=== PATIENT | female | born 2000 | race Caucasian/White ===

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

== ENCOUNTER → 2018-07-29 | Outpatient (CLI) | payer OTHER ==
--- NOTE | 2018-07-29 17:40 | US ---
EXAM DESCRIPTION: OB Level 2 /Maternal: Ultrasound. CLINICAL HISTORY: Gestational size and dates correlation. Z33.1. 1 para 0, AB 0. By LMP , EGA today is 18 weeks, 4 days, with TRACY of 12/26/2018.. COMPARISON: Previous OB ultrasound not available.. TECHNIQUE: Trans-pelvic scanning through the urine-filled bladder; aguiar-scale, color Doppler, and M-mode sonography FINDINGS: Single, intrauterine gestation, cephalic position. Amniotic fluid volume subjectively normal NATY : Not measured.. Maternal cervix visualized. Placenta posterior with no evidence of previa or abruptio. heart rate by M-mode sonography 155 beats/min. limb activity observed. structural survey: Situs solitus. The following structures were visualized and grossly normal - urinary bladder, stomach, and bilateral kidneys; cord insertion, 3-vessel cord and 4 extremities; spine, 4-chamber heart; diaphragm, bilateral choroid plexus, lateral ventricles, cerebellum, and cisterna magna. Nose/lips seen profile, but not en face. Ultrasound parameter measurements for estimating gestational age: BPD 46.6 mm 20/1 (weeks/days). Head circumference 163.0 mm 19/0. Abdominal circumference 130.0 mm 18/4. Femur length 29.1 mm 19/0. Ultrasound parameter ratios and cephalic index are within the normal range. Mean estimated gestational age is 19 weeks 1 days, corresponding to TRACY of 12/22/2018. Estimated weight based on these measurements is 259+/- 39 g. 9 ounces. 61st percentile LMP. Bilateral adnexa not well seen; ovaries not seen. IMPRESSION: 1. Single, living, intrauterine gestation in cephalic presentation. Amniotic fluid volume subjectively normal, and maternal cervix visualized.. Placenta posterior with no evidence of previa. Structural survey grossly normal . cardiac ventricular outflow tracts were not well seen. face only seen in profile. 2. Estimated gestational age by today's ultrasound examination is 19 weeks 1 days with TRACY 12/22/2018. This is 4 days older than the estimated gestation age by medical history.. 3. Estimated weight is 259 g. 9 ounces.. 61st Percentile LMP. Electronically signed by: Chito Zavaleta MD 07/29/2018 5:39 PM SIGNALS COLLECTION TECHNICIAN
== END ==
LOC: US 14:04
PROVIDERS: ATTEND General Practice
DX: O09.30 Supervision of pregnancy with insufficient antenatal care, unspecified trimester (principal)

== ENCOUNTER 2018-08-13 08:51 | Emergency (ER) | payer OTHER ==
[2018-08-13 09:03] VITALS: TEMP 98
--- NOTE | 2018-08-13 11:07 | ED.PDOC ---
History of Present Illness - General Chief Complaint: FACILITY MAINTENANCE TECHNICIAN Problem Stated Complaint: 21 weeks IUP with bleeding Time Seen by Provider: 08/13/18 08:56 Source: patient Exam Limitations: no limitations - History of Present Illness Initial Comments: the patient is a 17-year-old female presenting to the emergency room secondary towaking up with mild spotting this morning. The patient is 20 weeks and 5 days with a due date of December 26. This is her first , not her second like I previously thought. She is not having any cramping. She has not had any trauma and she has not had intercourse within the last 48 hours. No history of any bleeding problems. No contractions that she is feeling. No history of any cervical issues. Her air pollution compliance inspector is Dr. Lewis. He is currently out of town. Timing/Duration: 1-3 hours Severity: mild Improving Factors: nothing Worsening Factors: nothing Associated Symptoms: denies symptoms Allergies/Adverse Reactions: Allergies NO KNOWN ALLERGY Allergy (Verified 12/03/17 10:08) Home Medications: Ambulatory Orders Vit W/ Ferrous Fumara [] 1 tab PO DAILY 08/13/18 Review of Systems - Review of Systems Constitutional: States: no symptoms reported EENTM: States: no symptoms reported Respiratory: States: no symptoms reported Cardiology: States: no symptoms reported Gastrointestinal/Abdominal: States: no symptoms reported Genitourinary: States: see HPI Musculoskeletal: States: no symptoms reported Skin: States: no symptoms reported Neurological: States: no symptoms reported Endocrine: States: no symptoms reported All other Systems: No Change from Baseline Past Medical History (General) - Patient Medical History Hx Seizures: No Hx Stroke: No Hx Dementia: No Hx Asthma: No Hx of COPD: No Hx Cardiac Disorders: No Hx Congestive Heart Failure: No Hx Pacemaker: No Hx Hypertension: No Hx Thyroid Disease: No Hx Diabetes: No Hx Gastroesophageal Reflux: No Hx Renal Disease: No Hx Cancer: No Hx of HIV: No Hx Hepatitis C: No Hx MRSA: No Surgical History: no surgical history - Vaccination History Hx Tetanus, Diphtheria Vaccination: Yes Hx Influenza Vaccination: No Hx Pneumococcal Vaccination: No - Social History Hx Tobacco Use: No Hx Chewing Tobacco Use: No Hx Alcohol Use: No Hx Substance Use: No Hx Substance Use Treatment: No Hx Depression: No Hx Physical Abuse: No Hx Emotional Abuse: No Hx Suspected Abuse: No - Female History Patient is a Female of Child Bearing Age (10 -59 yrs old): Yes Hx Last Menstrual Period: 10/21/17 Patient : Yes Expected Date of Delivery:: 12/26/18 Hx Gestational Age: 21 Family Medical History - Family History Mother Family History: Unknown Living Status: Still Living Physical Exam - Physical Exam General Appearance: Alert, Comfortable, No apparent distress Eye Exam: bilateral normal Ears, Nose, Throat: hearing grossly normal, normal ENT inspection Neck: full range of motion, supple Respiratory: lungs clear, normal breath sounds, no respiratory distress, no accessory muscle use Cardiovascular/Chest: normal peripheral pulses, regular rate, rhythm, no edema Peripheral Pulses: radial,right: 2+, radial,left: 2+ Gastrointestinal/Abdominal: non tender, soft Rectal Exam: deferred Back Exam: normal inspection, no CVA tenderness, no vertebral tenderness Extremity: normal range of motion, non-tender, normal inspection, no pedal edema , normal capillary refill Neurologic: alert, normal mood/affect, oriented x 3 Skin Exam: normal color Comments: Vital Signs - 8 hr 08/13/18 08/13/18 09:01 10:18 Temperature 98 F Pulse Rate [ 89 89 Left Brachial] Respiratory 16 16 Rate Blood Pressure 112/70 108/68 [Left Arm] O2 Sat by Pulse 100 99 Oximetry fundus is at the umbilicus. No obvious contractions palpable Progress - Progress Progress: 08/13/18 11:07 the patient is a 17-year-old female presenting to the emergency room with her first at 20 weeks and 5 days given a due date of December 26. She is presenting secondary to spotting this morning. Low resolution ultrasound here by me shows a child that is moving a good bit. heart tones are in the 150s. Placenta is towards the left however there may be a mild extension down towards the cervix. I see no obvious evidence of any placental abruption. There is plenty of fluid. No obvious contractions noted by ultrasound. We do not have external monitors for care here. Pelvic exam shows a small amount of blood but the cervix is closed and long. her air pollution compliance inspector is out of town until next week. I contacted Dr. Morfin in [place] who has agreed to see her tomorrow morning at her walk in clinic for another evaluation before the weekend. Patient is agreeable to this. Patient reports her blood type is O+. Follow-up tomorrow. ER warnings were given. Departure - Departure Clinical Impression: Vaginal bleeding during Disposition: Discharge to Home or Self Care Condition: Fair Departure Forms: ED Discharge - Pt. Copy, Patient Portal Self Enrollment Instructions: DI for Vaginal Bleeding Diet: regular diet Activity: other - pelvic rest. No strenuous activity. Referrals: Dieter Lweis MD [Primary Care Provider] - 1-5 Days Home Medications: Ambulatory Orders Vit W/ Ferrous Fumara [] 1 tab PO DAILY 08/13/18 Additional Instructions: the patient is a 17-year-old female presenting to the emergency room with her first at 20 weeks and 5 days given a due date of December 26. She is presenting secondary to spotting this morning. Low resolution ultrasound here by me shows a child that is moving a good bit. heart tones are in the 150s. Placenta is towards the left however there may be a mild extension down towards the cervix. I see no obvious evidence of any placental abruption. There is plenty of fluid. No obvious contractions noted by ultrasound. We do not have external monitors for care here. Pelvic exam shows a small amount of blood but the cervix is closed and long. her air pollution compliance inspector is out of town until next week. I contacted Dr. Morfin in [place] who has agreed to see her tomorrow morning at her walk in clinic for another evaluation before the weekend. Patient is agreeable to this. Patient reports her blood type is O+. Follow-up tomorrow. ER warnings were given.
[2018-08-13 11:32] VITALS: BP 102/69; O2SAT 100
== END 2018-08-13 11:32 | disposition home or self-care (01) ==
LOC: ER 08:51
DX: O26.852 Spotting complicating pregnancy, second trimester (principal); Z3A.20 20 weeks gestation of pregnancy

== ENCOUNTER → 2020-05-26 | Outpatient (CLI) | payer BC, MEDICAID | LOC: LAB.O 12:36 | PROVIDERS: ATTEND Family Medicine | DX: O20.0 Threatened abortion (principal) ==

== ENCOUNTER → 2020-05-30 | Outpatient (CLI) | payer BC, MEDICAID | LOC: LAB.O 10:23 | PROVIDERS: ATTEND Family Medicine | DX: O20.0 Threatened abortion (principal); Z3A.00 Weeks of gestation of pregnancy not specified ==

== ENCOUNTER 2020-09-20 11:05 | Emergency (ER) | payer BC, OTHER ==
[2020-09-20] MEDS ORDERED: MORPHINE SULFATE INJ 10 MG/ML VIAL IV ONE (11:36)
[2020-09-20] MEDS ORDERED: ONDANSETRON INJ 4 MG/2 ML VIAL IV ONE (11:36)
[2020-09-20] MEDS ORDERED: SODIUM CHLORIDE 0.9% 1000ML 1,000 ML IVS ONE (11:36)
--- NOTE | 2020-09-20 11:41 | ED.PDOC ---
History of Present Illness - General Chief Complaint: Abdominal Pain Stated Complaint: right groin pain Time Seen by Provider: 09/20/20 11:35 Additional Information: Patient is a 19-year-old female who presents to the ED with chief complaint of pelvic pain. Patient indicates the pain began at 2:00 in the morning the night before last while she was having intercourse. Pain began in her right lower quadrant and radiated up the right side of her abdomen and diffusely across her pelvis. Patient describes the pain as a throbbing, 8/10. No vaginal discharge or dysuria. Patient is and not concerned about STDs. Patient was seen last night at the emergency department and [place] for the same pain. She relays that they performed a CAT scan which showed no acute abnormalities and patient was discharged home with follow-up outpatient. Patient's pain has been constant and persists and she presents to the ED today for reevaluation. Patient denies history of similar symptoms or painful menses. Patient indicates she has a history of anxiety and wonders if her anxiety is contributing to her symptoms. Patient has no other complaints. - History of Present Illness Allergies/Adverse Reactions: Allergies NO KNOWN ALLERGY Allergy (Verified 12/03/17 10:08) Home Medications: Ambulatory Orders Vit W/ Ferrous Fumara [] 1 tab PO DAILY 08/13/18 Acetaminophen W/ Codeine [Tylenol W/ CODEINE #3] 1 ea PO Q6H PRN #20 09/20/20 Ibuprofen 800 mg PO Q8H PRN #20 tab 09/20/20 Review of Systems - Review of Systems Constitutional: Denies: chills, fever Respiratory: States: no symptoms reported. Denies: cough, short of breath Cardiology: States: no symptoms reported. Denies: chest pain, palpitations Gastrointestinal/Abdominal: States: see HPI, nausea Genitourinary: States: see HPI. Denies: discharge, dysuria, frequency Musculoskeletal: States: no symptoms reported Skin: States: no symptoms reported. Denies: rash Neurological: States: no symptoms reported All other Systems: Reviewed and Negative Past Medical History (General) - Patient Medical History Hx Seizures: No Hx Stroke: No Hx Dementia: No Hx Asthma: No Hx of COPD: No Hx Cardiac Disorders: No Hx Congestive Heart Failure: No Hx Pacemaker: No Hx Hypertension: No Hx Thyroid Disease: No Hx Diabetes: No Hx Gastroesophageal Reflux: No Hx Renal Disease: No Hx Cancer: No Hx of HIV: No Hx Hepatitis C: No Hx MRSA: No Surgical History: tonsillectomy - Vaccination History Hx Tetanus, Diphtheria Vaccination: Yes Hx Influenza Vaccination: No Hx Pneumococcal Vaccination: No - Social History Hx Tobacco Use: No Hx Chewing Tobacco Use: No Hx Alcohol Use: No Hx Substance Use: No Hx Substance Use Treatment: No Hx Depression: No Hx Physical Abuse: No Hx Emotional Abuse: No Hx Suspected Abuse: No - Activities of Daily Living Hospice Agency (if applicable):: None - Female History Patient is a Female of Child Bearing Age (10 -59 yrs old): Yes Hx Last Menstrual Period: 10/21/17 Patient : No Expected Date of Delivery:: 12/26/18 Hx Gestational Age: 21 Family Medical History - Family History Mother Family History: Unknown Living Status: Still Living Physical Exam - Physical Exam General Appearance: Alert, No apparent distress, Well Developed, Well Nourished, Other - Patient appears uncomfortable Eyes, Ears, Nose, Throat Exam: normal ENT inspection Neck: normal inspection Cardiovascular/Respiratory: regular rate, rhythm, no M/R/G, normal peripheral pulses, no JVD, normal breath sounds, no respiratory distress Gastrointestinal/Abdominal: normal bowel sounds, soft, other - Moderate right lower quadrant tenderness to palpation without guarding. Mild diffuse abdominal tenderness to palpation. Pelvic Exam: external exam normal, speculum exam normal, bimanual exam normal, no cerv. motion tender, no masses, other - Bimanual exam nontender with no evidence of trauma. Back Exam: normal inspection, no CVA tenderness Extremity: normal range of motion, normal inspection Neurologic: counter checker II-XII nml as tested, no motor/sensory deficits, alert, normal mood/affect, other - Anxious Skin Exam: normal color, warm/dry Progress - Progress Progress: 09/20/20 11:44 Differential diagnosis includes but is not limited to ruptured ovarian cyst, mechanical trauma, ectopic , ovarian torsion. 09/20/20 13:45 Patient reexamined. Patient feeling much better and has only residual discomfort. Patient's labs are unremarkable and show no evidence of infection. Patient sono is consistent with a ruptured ovarian cyst. I discussed with both patient and her need for pelvic rest. I will discharge with analgesics and give referral to gynecology. Vital signs stable, patient is NAD and looks clinically well and I believe is safe for discharge with outpatient follow-up. Follow-up instructions, discharge instructions and return to ED precautions discussed with patient. Patient voices understanding and willingness to comply with instructions. All laboratory and radiographic results have been discussed with the patient, and all questions answered. Patient is happy with plan. Departure - Departure Clinical Impression: Rupture of cyst of right ovary Time of Disposition: 13:47 Disposition: Discharge to Home or Self Care Departure Forms: ED Discharge - Pt. Copy, Patient Portal Self Enrollment Instructions: DI for Abdominal Pain-Adult Referrals: ZEYNEP BRIDGES [Primary Care Provider] - 1-2 Weeks Prescriptions: Ibuprofen 800 mg PO Q8H PRN #20 tab PRN Reason: Pain Acetaminophen W/ Codeine [Tylenol W/ CODEINE #3] 1 ea PO Q6H PRN #20 PRN Reason: Pain Home Medications: Ambulatory Orders Vit W/ Ferrous Fumara [] 1 tab PO DAILY 08/13/18 Acetaminophen W/ Codeine [Tylenol W/ CODEINE #3] 1 ea PO Q6H PRN #20 09/20/20 Ibuprofen 800 mg PO Q8H PRN #20 tab 09/20/20
[2020-09-20 13:30] VITALS: O2SAT 96
--- NOTE | 2020-09-20 13:34 | US ---
EXAM DESCRIPTION: Pelvis Transvaginal: Ultrasound. CLINICAL HISTORY: 19 years Female pelvic pain COMPARISON: OB pelvic ultrasound July 2018. TECHNIQUE: Endovaginal scanning; Hood-scale and Doppler modes. FINDINGS: Uterus 6.6 x 4.1 x 3.2 cm 44.5 mL.. Uterus anteverted versus retroflexed.. Endometrial thickness 6.5 mm. Myometrium heterogeneous. Cervix unremarkable. Cul-de-sac minimal fluid. Right ovary 6.1 x 3.9 x 3.6 cm 44.2 mL. Normal waveform and color Doppler vascularity. Small follicles but no cysts. No adnexal mass; free fluid surrounding the ovary. Left ovary 4.6 x 3.8 x 2.5 cm 22.7 mL. Normal waveform and color Doppler vascularity. Thick-walled follicle, 14 x 10 mm, projecting from the ovary with no cysts. Multiple smaller follicles. No adnexal mass; free fluid abutting the ovary. IMPRESSION: 1. Bilateral ovaries enlarged. Bilateral fluid in the adnexa more on the right. Thick-walled follicle 14 mm, projecting from the left ovary. Normal vascularity bilaterally. Fluid may be related to recently ruptured follicle or cyst. 2. Normal size of the uterus with normal endometrial thickening. Orientation is anteverted versus retroflexed. Minimal fluid in the cul-de-sac. Electronically signed by: Chito Zavaleta MD 09/20/2020 1:[address] [facility]
[2020-09-20] MEDS ORDERED: PROMETHAZINE HCL 25 MG TAB PO ONE (13:44)
[2020-09-20] MEDS ORDERED: HYDROcodone 10MG/APAP 325MG 1 EA TAB PO ONE (13:44)
[2020-09-20 14:16] VITALS: BP 134/76; TEMP 98.9
== END 2020-09-20 14:10 | disposition home or self-care (01) ==
LOC: ER 11:05
DX: N83.201 Unspecified ovarian cyst, right side (principal); R11.0 Nausea; F41.9 Anxiety disorder, unspecified
CPT/HCPCS: 36415; 76830; 80053; 81001; 83690; 85025; 87210; 87491; 87591; J2270; J2405; J7030; Q0169